=== PATIENT | female | born 1940 | race Hispanic/Latino ===

== ENCOUNTER 2019-07-29 15:39 | Emergency (ER) | payer MEDICARE ==
[2019-07-29 16:52] LABS: Absolute Lymphocytes (CBC) 1.7 K/uL (0.7-4.9); Basophils % 0.9 % (0-1.3); Hematocrit 37.1 % (36.0-45.0); Lymphocytes % 28.5 % (15.3-44.8); MPV 10.1 fL (7.6-11.3); RBC Red Blood Cell Count 3.82 M/uL (3.86-4.86)
[2019-07-29 16:53] LABS: Protime INR 1.03
--- NOTE | 2019-07-29 17:02 | RAD REPORT ---
EXAM DESCRIPTION: CT - Head Brain Wo Cont - 07/29/2019 4:45 pm CLINICAL HISTORY: DIZZINESS Headache, drowsiness COMPARISON: No comparisons TECHNIQUE: All CT scans are performed using dose optimization technique as appropriate and may inclu de automated exposure control or mA/KV adjustment according to patient size. FINDINGS: No intracranial hemorrhage, hydrocephalus or extra-axial fluid collection.No areas of brai n edema or evidence of midline shift. The paranasal sinuses and mastoids are clear. The calvarium is intact. IMPRESSION: No acute intracranial abnormality.
[2019-07-29 17:09] LABS: BUN Blood Urea Nitrogen 12 mg/dL (7-18); Bicarbonate 29 mmol/L (21-32); Glucose Level 110 mg/dL (74-106); Magnesium 2.1 mg/dL (1.8-2.4); Potassium 3.6 mmol/L (3.5-5.1); Sodium Level 142 mmol/L (136-145); Troponin (Emerg Dept Use Only) < 0.02 ng/mL (0.0-0.045)
--- NOTE | 2019-07-29 17:37 | ER ---
Nurse's Notes [facility] Name: Sangeeta Maddox Age: 79 yrs Sex: Female : 1940 Arrival Date: 07/29/2019 Time: 15:41 Bed 2 Private MD: Karen Rock Diagnosis: Dizziness and giddiness;Hypertensive heart disease Presentation: 07/28 15:48 Chief complaint: Patient states: Dizziness, pain to ears, not feeling well for 4 days. ll1 No known fever. Slight diarrhea. Coronavirus screen: Proceed with normal triage. Patient denies a cough. Patient denies shortness of breath or difficulty breathing. Patient denies measured and/or subjective temperature greater than 100.4F prior to today's visit. Patient denies travel on a cruise ship or to a country the [facility] currently lists as an affected area. Patient denies contact with known and/or suspected case of COVID-19. Ebola Screen: Patient denies travel to an Ebola-affected area in the 21 days before illness onset. Initial Sepsis Screen: Does the patient meet any 2 criteria? No. Patient's initial sepsis screen is negative. Does the patient have a suspected source of infection? No. Patient's initial sepsis screen is negative. Risk Assessment: Do you want to hurt yourself or someone else? Patient reports no desire to harm self or others. Onset of symptoms was July 26, 2019. 15:48 Method Of Arrival: Ambulatory ll1 15:48 Acuity: ARSEN 3 ll1 Historical: - Allergies: 15:53 PENICILLINS; ll1 - PMHx: 15:53 High Cholesterol; Hypertension; ll1 - Immunization history:: Flu vaccine is up to date. - Social history:: Patient/guardian denies using alcohol, street drugs, tobacco products, Smoking status: Patient denies any tobacco usage or history of. Screenin:47 Abuse screen: Denies threats or abuse. Denies injuries from another. Nutritional ph screening: No deficits noted. Tuberculosis screening: No symptoms or risk factors identified. Fall Risk None identified. Assessment: 16:44 General: Appears in no apparent distress. comfortable, slender, well groomed, Behavior ph is calm, cooperative, appropriate for age, Reports feeling ill for 2-3 days, Denies fever. Pain: Complains of pain in right ear and left ear. Neuro: Level of Consciousness is awake, alert, obeys commands, Oriented to person, place, time, situation, Reports dizziness. Cardiovascular: Reports fatigue, palpitations, Denies chest pain, nausea, shortness of breath, Capillary refill < 3 seconds in bilateral fingers Patient's skin is warm and dry. Respiratory: Airway is patent Respiratory effort is even, unlabored, Respiratory pattern is regular, symmetrical. GI: Reports diarrhea, Patient currently denies abdominal pain, nausea, vomiting. EENT: Reports pain in right ear and left ear. Derm: Skin is intact, is healthy with good turgor, Skin is pink, warm \T\ dry. Musculoskeletal: Circulation, motion, and sensation intact. Range of motion: intact in all extremities. 18:05 Reassessment: Patient appears in no apparent distress at this time. Patient and/or ph family updated on plan of care and expected duration. Pain level reassessed. Patient is alert, oriented x 3, equal unlabored respirations, skin warm/dry/pink. Pt d/c home w/ family, instructed to follow up w/ PCP. Vital Signs: 15:48 BP 160 / 70; Pulse 60; Resp 18; Temp 97.5; Pulse Ox 98% ; Weight 59.87 kg; Height 4 ft. ll1 10 in. (147.32 cm); Pain 8/10; 17:07 BP 149 / 63; Pulse 57; Resp 16; Pulse Ox 98% on R/A; ph 17:10 BP 147 / 64 Supine; Pulse 62; ph 17:10 BP 151 / 64 Sitting; Pulse 67; ph 17:10 BP 139 / 68 Standing; Pulse 69; ph 15:48 Body Mass Index 27.59 (59.87 kg, 147.32 cm) ll1 ED Course: 15:41 Patient arrived in ED. ag5 15:41 Karen Rock MD is Private Physician. ag5 15:50 Triage completed. ll1 15:53 Arm band placed on Patient placed in an exam room, on a stretcher. ll1 16:00 Rebecca Gu RN is Primary Nurse. ph 16:02 Marco Rosas PA is PHCP. cp 16:02 Ruben Teresa MD is Attending Physician. cp 16:40 Initial lab(s) drawn, by ky, sent to lab. Inserted saline lock: 20 gauge in right ph antecubital area, using aseptic technique. Blood collected. 16:45 CT Head Brain wo Cont In Process Unspecified. EDMS 16:46 Patient has correct armband on for positive identification. Placed in gown. Bed in low ph position. Call light in reach. Side rails up X2. box tender on. Pulse ox on. NIBP on. Door closed. Noise minimized. Warm blanket given. 17:36 Karen Rock MD is Referral Physician. cp 18:00 No provider procedures requiring assistance completed. IV discontinued, intact, em bleeding controlled, No redness/swelling at site. Pressure dressing applied. Administered Medications: No medications were administered Outcome: 17:37 Discharge ordered by MD. cp 18:00 Discharged to home ambulatory. em 18:00 Condition: good 18:00 Discharge instructions given to patient, Instructed on discharge instructions, follow up and referral plans. Demonstrated understanding of instructions, follow-up care. 18:06 Patient left the ED. em Signatures: Dispatcher [employer] Cory Manuel RN RN Rebecca Gu RN RN ph Marco Rosas, PA PA Nakul Logan ag5 Izabel Olivares RN RN ll1
--- NOTE | 2019-07-29 17:38 | EDPHYS ---
Physician Documentation [facility] Name: Sangeeta Maddox Age: 79 yrs Sex: Female : 1940 Arrival Date: 07/29/2019 Time: 15:41 Bed 2 Private MD: Karen Rock ED Physician Ruben Teresa HPI: 07/28 16:25 This 79 yrs old Female presents to ER via Ambulatory with complaints of High cp Blood Pressure, Dizziness. 16:25 The patient has elevated blood pressure and discovered this at home, with a home cp device. Onset: The symptoms/episode began/occurred yesterday. Associated signs and symptoms: Pertinent positives: dizziness, headache, ear pain, diarrhea, Pertinent negatives: chest pain, nausea, visual changes, vomiting, weakness. Severity of symptoms: At its worst the blood pressure was 190 mm Hg, in the emergency department the blood pressure is improved, 160 mm Hg. Historical: - Allergies: 15:53 PENICILLINS; ll1 - PMHx: 15:53 High Cholesterol; Hypertension; ll1 - Immunization history:: Flu vaccine is up to date. - Social history:: Patient/guardian denies using alcohol, street drugs, tobacco products, Smoking status: Patient denies any tobacco usage or history of. ROS: 16:30 Constitutional: Negative for body aches, chills, fever, poor PO intake. cp 16:30 Eyes: Negative for injury, pain, redness, and discharge. cp 16:30 Cardiovascular: Negative for chest pain, edema, palpitations. cp 16:30 ENT: Positive for ear pain, Negative for sore throat, difficulty swallowing, difficulty cp handling secretions. 16:30 Respiratory: Negative for cough, shortness of breath, wheezing. 16:30 Abdomen/GI: Positive for diarrhea, Negative for abdominal pain, nausea, vomiting, constipation. 16:30 : Negative for urinary symptoms. 16:30 Neuro: Positive for dizziness, headache, Negative for altered mental status, gait disturbance, numbness, speech changes, weakness. 16:30 All other systems are negative. Exam: 16:40 Constitutional: The patient appears in no acute distress, alert, awake, comfortable, cp non-diaphoretic, non-toxic, well developed, well nourished. 16:40 Head/Face: Normocephalic, atraumatic. cp 16:40 Eyes: Pupils equal round and reactive to light, extra-ocular motions intact. Lids and lashes normal. Conjunctiva and sclera are non-icteric and not injected. Cornea within normal limits. Periorbital areas with no swelling, redness, or edema. ENT: Nares patent. No nasal discharge, no septal abnormalities noted. Tympanic membranes are normal and external auditory canals are clear. Oropharynx with no redness, swelling, or masses, exudates, or evidence of obstruction, uvula midline. Mucous membranes moist. Chest/axilla: Normal chest wall appearance and motion. Nontender with no deformity. No lesions are appreciated. 16:40 Cardiovascular: Rate: normal, Rhythm: regular, Edema: is not appreciated, JVD: is not appreciated. 16:40 Respiratory: the patient does not display signs of respiratory distress, Respirations: normal, no use of accessory muscles, no retractions, labored breathing, is not present, Breath sounds: are clear throughout, no decreased breath sounds. 16:40 Abdomen/GI: Exam negative for discomfort, distension, guarding, Inspection: abdomen appears normal. 16:40 Skin: cellulitis, is not appreciated, no rash present. 16:40 Neuro: Orientation: to person, place \T\ time. Mentation: is normal, Cerebellar function: is grossly normal, Motor: moves all fours, strength is normal, Sensation: is normal, Gait: is steady, at a normal pace, without difficulty. Vital Signs: 15:48 BP 160 / 70; Pulse 60; Resp 18; Temp 97.5; Pulse Ox 98% ; Weight 59.87 kg; Height 4 ft. ll1 10 in. (147.32 cm); Pain 8/10; 17:07 BP 149 / 63; Pulse 57; Resp 16; Pulse Ox 98% on R/A; ph 17:10 BP 147 / 64 Supine; Pulse 62; ph 17:10 BP 151 / 64 Sitting; Pulse 67; ph 17:10 BP 139 / 68 Standing; Pulse 69; ph 15:48 Body Mass Index 27.59 (59.87 kg, 147.32 cm) ll1 MDM: 16:19 Patient medically screened. cp 18:05 Data reviewed: vital signs, nurses notes, lab test result(s), EKG, radiologic studies, cp CT scan. 18:05 Counseling: I had a detailed discussion with the patient and/or guardian regarding: the cp historical points, exam findings, and any diagnostic results supporting the discharge/admit diagnosis, lab results, radiology results, the need for outpatient follow up, a family practitioner, to return to the emergency department if symptoms worsen or persist or if there are any questions or concerns that arise at home. Response to treatment: the patient's symptoms have mildly improved after treatment, and as a result, I will discharge patient. 07/28 16:21 Order name: Basic Metabolic Panel; Complete Time: 17:23 cp 07/28 17:23 Interpretation: Normal except: GLUC 110. cp 07/28 16:21 Order name: CBC with Diff; Complete Time: 17:23 cp 07/28 17:23 Interpretation: Normal except: RBC 3.82. cp 07/28 16:21 Order name: Magnesium; Complete Time: 17:23 cp 07/28 16:21 Order name: PT-INR; Complete Time: 17:23 cp 07/28 16:21 Order name: Troponin (emerg Dept Use Only); Complete Time: 17:23 cp 07/28 17:24 Interpretation: Reviewed. cp 07/28 16:21 Order name: CT Head Brain wo Cont; Complete Time: 17:23 cp 07/28 17:24 Interpretation: Report reviewed. cp 07/28 16:21 Order name: Orthostatics; Complete Time: 17:18 cp 07/28 16:21 Order name: EKG; Complete Time: 16:32 cp 07/28 16:21 Order name: Cardiac monitoring; Complete Time: 16:43 cp 07/28 16:21 Order name: EKG - Nurse/Tech; Complete Time: 17:06 cp 07/28 16:21 Order name: IV Saline Lock; Complete Time: 16:43 cp 07/28 16:21 Order name: Labs collected and sent; Complete Time: 16:43 cp 07/28 16:21 Order name: O2 Per Protocol; Complete Time: 16:43 cp 07/28 16:21 Order name: O2 Sat Monitoring; Complete Time: 16:43 cp Administered Medications: No medications were administered Disposition: 07/29 15:59 Co-signature as Attending Physician, Ruben Teresa MD I agree with the assessment and kdr plan of care. Disposition: 07/29/19 17:37 Discharged to Home. Impression: Dizziness and giddiness, Hypertensive heart disease. - Condition is Stable. - Discharge Instructions: Dizziness, Hypertension, How to Take Your Blood Pressure, [id number], Aspirin and Your Heart. - Medication Reconciliation Form, Thank You Letter, Antibiotic Education, Prescription Opioid Use form. - Follow up: Karen Rock MD; When: 2 - 3 days; Reason: Recheck today's complaints. - Problem is new. - Symptoms have improved. Signatures: Dispatcher [employer] EDRuben Nobles MD MD [facility] Cory Grider RN RN em Rebecca Gu RN RN ph Marco Rosas, PA PA cp Izabel Olivares RN RN ll1 Corrections: (The following items were deleted from the chart) 07/28 18:06 17:37 07/29/2019 17:37 Discharged to Home. Impression: Dizziness and giddiness; em Hypertensive heart disease. Condition is Stable. Forms are Medication Reconciliation Form, Thank You Letter, Antibiotic Education, Prescription Opioid Use. Follow up: Karen Rock; When: 2 - 3 days; Reason: Recheck today's complaints. Problem is new. Symptoms have improved. cp
[2019-07-29 18:13] VITALS: TEMP 97.5; O2SAT 98
[2019-07-29 18:15] VITALS: BP 139/68
--- NOTE | 2019-07-30 18:33 | EKG ---
Test Date: 2019-07-29 Test Time: 17:04:58 Operations Inspector: VIRGIE MEASUREMENT RESULTS: Intervals: Rate: 56 CT: 136 QRSD: 84 QT: 438 QTc: 422 Clute: P: 6 CT: 136 QRS: 46 T: 36 INTERPRETIVE STATEMENTS: Sinus bradycardia Otherwise normal ECG Compared to ECG 01/18/2010 11:44:32 Sinus rhythm no longer present Electronically Signed On 07-30-19 18:31:20 CDT by Thom Liriano
== END 2019-07-29 18:06 | disposition home or self-care (01) ==
LOC: ER 15:39
DX: I11.9 Hypertensive heart disease without heart failure (principal); I10 Essential (primary) hypertension; Z88.0 Allergy status to penicillin
CPT/HCPCS: 36415; 70450; 80048; 83735; 84484; 85025; 85610; 93005; 99284

== ENCOUNTER 2021-05-12 06:42 | Day surgery (SDC) | payer OTHER ==
[2021-05-10 10:14] LABS: Absolute Lymphocytes (CBC) 2.1 K/uL (0.7-4.9); Hematocrit 38.3 % (36.0-45.0); Lymphocytes % 36.6 % (15.3-44.8); MPV 9.8 fL (7.6-11.3); RBC Red Blood Cell Count 3.89 M/uL (3.86-4.86)
[2021-05-10 10:16] LABS: Urine Appearance CLEAR (Clear); Urine Bilirubin NEGATIVE (Negative); Urine Blood NEGATIVE (Negative); Urine Color YELLOW (Yellow); Urine Glucose NEGATIVE (Negative); Urine Protein NEGATIVE (Negative)
[2021-05-10 10:17] LABS: Urine Microscopic Reflex NO UMIC
[2021-05-10 10:18] LABS: Protime INR 0.99
[2021-05-10 10:28] LABS: Potassium 3.2 mmol/L (3.5-5.1)
[2021-05-12] MEDS ORDERED: LIDOCAINE 1% W/EPI 1:100,000 MDV 20 ML VIAL ONE (06:55)
[2021-05-12] MEDS ORDERED: CEFAZOLIN SODIUM 1 GM/VIAL ONE (06:55)
[2021-05-12] MEDS ORDERED: VASOPRESSIN 20 UNIT/ML VIAL ONE (06:55)
[2021-05-12] MEDS ORDERED: NA CHLORIDE 0.9% 100 ML IV ONE (06:55)
[2021-05-12] MEDS ORDERED: Ringers Lactate 1,000 ML IV ONE ×2 (07:04→09:17)
[2021-05-12] MEDS ORDERED: CEFAZOLIN/SWI 2gm 2 GM/20 ML SYR ONE (07:04)
[2021-05-12] MEDS ORDERED: FENTANYL CITR 250 MCG/5 ML ONE ×2 (07:08→07:11)
[2021-05-12] MEDS ORDERED: MIDAZOLAM HCL 2 MG/2 ML INJ ONE (07:08)
[2021-05-12] MEDS ORDERED: LIDOCAINE 1% MPF 5 ML VIAL ONE (07:08)
[2021-05-12] MEDS ORDERED: KETAMINE HCL 500 MG/5 ML VIAL ONE (07:08)
[2021-05-12] MEDS ORDERED: dexAMETHasone 10 MG/ML VIAL ONE (07:08)
[2021-05-12] MEDS ORDERED: ONDANSETRON 4 MG/2 ML VIAL ONE (07:08)
[2021-05-12] MEDS ORDERED: propofoL 200 MG/20 ML VIAL IV ONE (07:08)
[2021-05-12] MEDS ORDERED: ROCURONIUM 50 MG/5 ML VIAL IV ONE (07:09)
[2021-05-12] MEDS ORDERED: GLYCOPYRROLATE 0.2 MG/ML SYR ONE (08:33)
[2021-05-12] MEDS ORDERED: HEPARIN 5000 UNIT/ML 1 ML VIAL ONE (12:03)
[2021-05-12] MEDS ORDERED: ACETAMINOPHEN 500 MG TAB PO PRN (12:30)
[2021-05-12] MEDS ORDERED: MORPHINE 2 MG/ML SYR IV PRN (12:30)
[2021-05-12] MEDS ORDERED: PROMETHAZINE INJ 25 MG/ML AMP IV PRN (12:30)
--- NOTE | 2021-05-12 12:45 | P.BOP ---
Preoperative diagnosis: stage 4 uterovaginal prolapse, GEORGE Postoperative diagnosis: same, perineocele Primary procedure: Lefort's Partial colpocleisis, distal posterior wall/perineocele repair Secondary procedure: MUS (TVT-O) cystoscopy Rate Analyst: Yuridia Oshea Estimated blood loss: 100 Specimen: none Findings: +1/+6/+8/7.5/mod/10/+1/+4/+7, perineocele Anesthesia: General Complications: None Drain(s): Urinary catheter Implants: tvt-o Fluids & blood products: 700 Transferred to: Recovery Room Condition: Good
[2021-05-12] MEDS: Ringers Lactate 1,000 ML IV SCH ×2 (13:15→21:00)
[2021-05-12] MEDS ORDERED: IBUPROFEN 600 MG TAB PO PRN (13:19)
[2021-05-12 14:01] VITALS: BMI 26.0
[2021-05-12] MEDS ORDERED: PNEUMOCOCCAL VACCINE 0.5 ML IMVAC ONE (15:00)
[2021-05-12] MEDS: HEPARIN 5000 UNIT/ML 1 ML VIAL SQ SCH (17:04)
[2021-05-12] MEDS ORDERED: ATORVASTATIN 10 MG TAB PO SCH (21:00)
[2021-05-12 23:21] VITALS: O2SAT 100
[2021-05-13] MEDS: HEPARIN 5000 UNIT/ML 1 ML VIAL SQ SCH ×2 (01:10→09:00)
[2021-05-13] MEDS: Ringers Lactate 1,000 ML IV SCH (05:13)
[2021-05-13 06:24] LABS: Absolute Lymphocytes (CBC) 1.6 K/uL (0.7-4.9); Hematocrit 29.2 % (36.0-45.0); Lymphocytes % 20.6 % (15.3-44.8); MPV 10.1 fL (7.6-11.3); RBC Red Blood Cell Count 3.03 M/uL (3.86-4.86)
[2021-05-13] MEDS ORDERED: PANTOPRAZOLE 40MG TABLET PO SCH (07:30)
[2021-05-13] MEDS ORDERED: HOME MED 1 EA UNK (Vit A/Vit C/Vit E/Zinc/Copper [Preservision Areds Softgel] Capsule) PO SCH (09:00)
[2021-05-13] MEDS ORDERED: BISOPROLOL/HCTZ 5/6.25MG TAB PO SCH (09:00)
[2021-05-13] MEDS ORDERED: AZELASTINE HCL 205.5 MCG/0.137 ML NAS SCH (09:00)
[2021-05-13] MEDS ORDERED: HOME MED 1 EA UNK (Multivitamin/Iron/Folic Acid [Centrum Adults Tablet] Tablet) PO SCH (09:00)
[2021-05-13] MEDS ORDERED: MELOXICAM 7.5 MG TAB PO SCH (09:00)
[2021-05-13] MEDS ORDERED: OCUVITE (VIT A,C & E/LUTEIN/MINERAL) TABLET PO SCH (09:00)
[2021-05-13] MEDS ORDERED: MULTIVIT W/ MINERAL TAB PO SCH (09:00)
[2021-05-13] MEDS ORDERED: VITAMIN D 5,000 UNIT CAP PO SCH (09:00)
[2021-05-13] MEDS ORDERED: PUMP NAS SCH (09:00)
[2021-05-13] MEDS ORDERED: MONTELUKAST 10 MG TAB PO SCH (09:00)
[2021-05-13] MEDS ORDERED: HCTZ PO SCH (09:00)
[2021-05-13] MEDS ORDERED: BISOPROLOL PO SCH (09:00)
[2021-05-13] MEDS ORDERED: HOME MED 1 EA UNK (Omeprazole [Prilosec] 20 MG Capsule.Dr) PO SCH (09:00)
[2021-05-13 12:27] LABS: Absolute Lymphocytes (CBC) 2.5 K/uL (0.7-4.9); Hematocrit 30.2 % (36.0-45.0); Lymphocytes % 30.2 % (15.3-44.8); MPV 10.3 fL (7.6-11.3); RBC Red Blood Cell Count 3.11 M/uL (3.86-4.86)
[2021-05-13 13:15] VITALS: BP 114/46; TEMP 97.7
--- NOTE | 2021-05-18 03:04 | OP ---
Date of Procedure: 05/12/2021 Surgeon: Marcy Farnsworth MD Dial Buffer: Yuridia Vigil Preoperative Diagnoses: Stage IV uterovaginal prolapse, stress urinary incontinence. Postoperative Diagnoses: Stage IV uterovaginal prolapse, stress urinary incontinence, and perineocel e. Procedures Performed: LeFort partial colpocleisis, distal posterior wall repair, perineocele repair, midurethral sling (TVT-O), cystoscopy. Anesthesia: General with LMA. Estimated Blood Loss: 100 Urine Output: 700 Fluids: Over 1500. Specimens: No specimens. Complications: No complications. Drains: Garcia catheter. Implants: TVT-O. Findings: POP-Q +1 +6 +8 7.5, moderate 10 +1 +4 and +7. Perineocele was noted. Indication: The patient was examined in the office. The prolapse appeared to be stage IV, however, not as large as it appeared to be in the OR nor on exam as noted now. The patient wanted to undergo surgical repair and declined any pessary management. The patient was very sure that she did not have any plans for vaginal intercourse and so discussed about colpocleisis, vaginal closure and she conse nted for this. Procedure In Detail: After informed consent was verified, she was taken back to OR, placed in supine fashion on the operating room table. General anesthesia was given. She was placed in the dorsal li thotomy position. Pelvic exam was performed and POP-Q as above. 2 g of Ancef was given. SCDs were placed. Time-out was done. Abdomen, vulva, vagina, and perineum were prepped and draped in a steril e fashion. Then, after the POP-Q was done and decided that colpocleisis was feasible, then went osiris dennis and marked the anterior compartment from the ureterovesical junction all the way down to a centimet er above the external cervical os. Similarly, 1 cm away from the external os posteriorly all the way to above from 3.5 cm proximal to the hymenal remnants in the future perineal body. Then, once the m arkings were made, dilute vasopressin was injected and vaginal epithelium was denuded in a rectangula r fashion on the anterior compartment first bisecting in the middle, so that 2 strips could be taken down. Once this was done, then posteriorly, the vaginal epithelium was excised as well. Then, a sunny nnel was created for drainage of the uterine contents with 0 Vicryl suture. The transverse channel w as first reconstructed using a Marnie clamp, making sure that it remains patent and then the suture wa s run all the way on the right lateral aspect to the distal aspect creating the lateral channel. The n, the left lateral channel was created in a continuous running fashion and then once this was done, we started to close the anterior and posterior anders apposing to each other with 2-0 Vicryl sutures i n interrupted layers in 3 layers, 3 to 4 stitches on each layer. Then, once the distal areas were at tached with 2-0 Vicryl [id number] sutures x6, then went ahead and re-examined rectovaginally the posterior defect. There was a clear perineocele, so a cristóbal-shaped incision was made in the dista l part of the posterior wall and then on the perineum all the way a centimeter above the anal orifice . Then, the skin was excised here after dilute vasopressin was injected. Then, the lateral structur es of the deep and superficial transverse perinei were exposed. External sphincter was exposed as we ll. Then, posterior wall was also opened up and levators were exposed, all the way the distal fascia l layer was exposed. Once this was done, then went ahead and plicated the distal posterior rectovagi nal septum. Then, the external sphincter was sutured with interrupted [id number] 2-0 Vicryl sut ures in an end-to-end fashion. Then, the deep transverse perineum remnants and the scar tissue were brought together with interrupted 2-0 Vicryl sutures for perineocele repair. About [address] aced here for reconstruction. Then, the levators were plicated as well with 2-0 Vicryl sutures. Onc e all this was done, there was excellent perineal body. The perineum was at least 3 cm. The distal posterior wall length was 2 cm. Once this was completed, rectal exam was done and was negative. In the mid urethral area, injection of dilute vasopressin was done. Allis clamps were placed on eith er sides of the mid urethral area. A 1 cm incision made in the midline. Dissection carried to the i psilateral obturator spaces hugging the inferior pubic rami, moved after the space was open. After t he membrane was perforated, similar dissection performed on both sides. The wing guide was placed an d the spike was passed through hugging the inferior pubic ramus, exiting at the level of the external meatus, 2 cm lateral to the groin fold, avoiding the adductor longus tendon. Same thing on the othe r side was done. Then, once the plastic sheath and the mesh were held with 2 Marnie clamps, the cente r mid urethral area was held with Allis clamp and then sheaths were pulled and the mesh was tensioned appropriately. Then, the Allis in the middle was let go and then the mesh trimmed at the skin with flush. Skin closed with Dermabond. Antibiotic solution used to irrigated the mesh and closed with c ontinuous running 3-0 Vicryl sutures. Garcia was removed. Cystoscopy was performed. Both ureteric o rifices had strong jets of urine from them. No evidence of any trauma or direct trauma to the bladde r. The bladder was drained. Garcia was replaced. No vaginal pack was placed. She was recovered fro m anesthesia and taken to PACU in stable condition, and sent over to the recovery area for overnight observation. RAHUL/BENITA Voice ID: [id number] Report ID: [id number]
== END 2021-05-13 14:20 | disposition home or self-care (01) ==
LOC: OR 06:42 → 2ND-WC 12:56 → OR 05-13 14:20
PROVIDERS: ATTEND Obstetrics & Gynecology
PROC: 0HQ9XZZ Repair Perineum Skin, External Approach (ICD-10-PCS; 2021-05-12)
PROC: 0TSD0ZZ Reposition Urethra, Open Approach (ICD-10-PCS; 2021-05-12)
PROC: 0ULG7ZZ Occlusion of Vagina, Via Natural or Artificial Opening (ICD-10-PCS; 2021-05-12)
PROC: 0JQC0ZZ Repair Pelvic Region Subcutaneous Tissue and Fascia, Open Approach (ICD-10-PCS; principal; 2021-05-12 07:30)
DX: N81.4 Uterovaginal prolapse, unspecified (principal); N39.3 Stress incontinence (female) (male); N81.81 Perineocele; Z20.822 Contact with and (suspected) exposure to COVID-19
CPT/HCPCS: 85025 ×3; 80048; 36415 ×2; 86900; 86850; 85610; 86901; 85730; 81003; 83036; 90732; 57250; 57288; 57120; U0003; J2704; J1644 ×2; J2250; J3010; J1100; J2270; J0690 ×2; J7120 ×3; J2405

== ENCOUNTER 2024-12-04 08:46 | Emergency (ER) | payer OTHER ==
--- OUTSIDE RECORDS SUMMARY | 2024-12-04 08:49 | XMS REPORT | Continuity of Care Document ---
Author Name Unknown Address [address] [place] [address] [place] [address] [address] [place] [address] Care Team Providers Care Dry Wall Installer Name Role Phone [email or web address] Attending Clinician Unavaila ble [email or web address] Admitting Clinician Unavaila ble Payers Payer Name Policy Type Policy Number Effective Date Expirati on Date Source [employer] - [employer] MED[employer]US PLAN (MEDICARE REPLACEMENT/ADVANTAGE - HMO) [id number]
[2024-12-04] MEDS ORDERED: KETOROLAC 30 MG/ML INJ ONE (09:07)
[2024-12-04] MEDS ORDERED: ACETAMINOPHEN 500 MG TAB ONE (09:07)
--- NOTE | 2024-12-04 10:10 | RAD REPORT ---
EXAM: CT brain without contrast HISTORY: TRAUMA COMPARISON: 10/11/2024 TECHNIQUE: Multiple contiguous axial images were obtained and a CT of the brain without contrast. Sag ittal and coronal reformats were performed. FINDINGS: No evidence of hydrocephalus, intracranial hemorrhage, or extra-axial fluid collection. The brain is normal in morphology. The calvarium is intact. The visualized paranasal sinuses and mastoid air cells are essentially clear . IMPRESSION: No evidence of acute intracranial abnormality. EXAM: CT of the cervical spine without contrast HISTORY: TRAUMA COMPARISON: None TECHNIQUE: Multiple contiguous axial images were obtained in a CT of the cervical spine without contr ast. Sagittal and coronal reformats were performed. FINDINGS: The vertebral bodies demonstrate normal height and alignment. No evidence of acute fracture or subluxation.. Up to moderate degenerative changes are present, with neural foraminal narrowing most pronounced at C4-5 through C6-7 on the left. No prevertebral soft tissue swelling is seen. The posterior facets are well aligned. Normal alignment of the skull base with the cervical spine is seen. The lung apices are unremarkable. IMPRESSION: No evidence of acute osseous abnormality of the cervical spine. Degenerative changes as above.
--- NOTE | 2024-12-04 10:19 | RAD REPORT ---
EXAMINATION: CT MAXILLOFACIAL WITHOUT CONTRAST CLINICAL INDICATION: [facility] MAIN TRAUMA Bed: TECHNIQUE: Axial images were obtained through the facial bones and orbits without intravenous contras t. Sagittal and coronal reconstructions were created from the data. One or more of the following dose reduction techniques were used: Automated exposure control, adjustment of the mA and/or kV accor ding to patient size, and/or iterative reconstruction. Unless otherwise specified, incidental findings do not require dedicated imaging follow-up. COMPARISON: No prior exam. FINDINGS: SOFT TISSUE: No significant abnormalities. Dental hardware results in streak artifact which limits ev aluation at the level of the oral cavity and oropharynx. BONES: No evidence of acute fracture, dislocation, or aggressive osseous lesions. No lesion of the v isualized skull base or calvarium. ORBITS: The globes are intact. No intraorbital hemorrhage or mass. SINUSES: The paranasal sinuses and tympanomastoid cavities are predominantly clear. IMPRESSION: No acute facial fractures. No soft tissue abnormalities.
--- NOTE | 2024-12-04 10:41 | ER ---
Nurse's Notes [facility] Name: Sangeeta Maddox Age: 84 yrs Sex: Female : 1940 Arrival Date: 12/04/2024 Time: 08:46 Bed 12 Private MD: Diagnosis: Fall on same level, unspecified;Headache Presentation: 12/04 09:09 Chief complaint: Patient states: tripped on unlevel ground yesterday morning. C/o pain ss to L arm, and L leg and L cheek. Small bruise and swelling noted to L side of face/ cheek area. Coronavirus screen: Client denies travel out of the [place] in the last 14 days. Ebola Screen: Patient denies exposure to infectious person. Patient denies travel to an Ebola-affected area in the 21 days before illness onset. Initial Sepsis Screen: Does the patient meet any 2 criteria? No. Patient's initial sepsis screen is negative. Does the patient have a suspected source of infection? No. Patient's initial sepsis screen is negative. Risk Assessment: Do you want to hurt yourself or someone else? Patient reports no desire to harm self or others. Onset of symptoms was December 03, 2024. 09:09 Acuity: ARSEN 3 ss 09:09 Method Of Arrival: Ambulatory Historical: - Allergies: 09:12 PENICILLINS; ss - PMHx: 09:12 High Cholesterol; Hypertension; ss - Infectious Disease History:: Denies. - Social history:: Smoking status: Patient denies any tobacco usage or history of. Vital Signs: 09:09 BP 154 / 79; Pulse 68; Resp 16; Temp 98.2; Pulse Ox 99% ; Weight 57.15 kg; Pain 7/10; ss 09:09 Pain Scale: Adult ss ED Course: 08:52 Patient arrived in ED. cj3 08:53 Tr Meneses FNP-C [facility]. dr5 08:53 Marco Whittaker MD is Attending Physician. dr5 09:12 Triage completed. ss 09:12 Arm band placed on left wrist. ss 09:14 Silvia Barnett, DENYS is Primary Nurse. ss 09:32 CT Head C Spine In Process Unspecified. EDMS 09:32 CT Facial Bones W/O Con In Process Unspecified. EDMS 10:08 Chest Single View XRAY In Process Unspecified. EDMS 10:08 Hip Left 2 View XRAY In Process Unspecified. EDMS 10:47 No provider procedures requiring assistance completed. Patient did not have IV access ss during this emergency room visit. Administered Medications: 09:22 Drug: Acetaminophen PO 1000 mg PO once Route: PO; ss 09:23 Drug: Ketorolac IM 30 mg IM once Route: IM; Site: right gluteus; ss Outcome: 10:40 Discharge ordered by MD. dr5 10:47 Discharged to home ambulatory, with family, ss 10:47 Condition: good 10:47 Discharge instructions given to patient, family, Instructed on discharge instructions, follow up and referral plans. medication usage, Demonstrated understanding of instructions, follow-up care, medications, Prescriptions given X 1, 10:48 Patient left the ED. ss Signatures: Dispatcher [employer] Silvia Vincent RN RN Tr Meneses, ENVIRONMENTAL SCIENCE INSTRUCTOR-C ENVIRONMENTAL SCIENCE INSTRUCTOR-Cdr5 Shefali Abbott cj3 Corrections: (The following items were deleted from the chart) 09:27 09:09 Chief complaint: Patient states: tripped on unlevel ground yesterday morning. C/o ss pain to L arm, and L leg ss
--- NOTE | 2024-12-04 10:41 | EDPHYS ---
Physician Documentation [facility] Name: Sangeeta Maddox Age: 84 yrs Sex: Female : 1940 Arrival Date: 12/04/2024 Time: 08:46 Bed 12 Private MD: ED Physician Marco Whittaker HPI: 12/04 09:08 This 84 yrs old Female presents to ER via Unassigned with complaints of Fall dr5 Injury, Head Injury Without LOC-Adult, LT Side Pain. 09:08 Details of fall: The patient fell from an upright position, while standing. Onset: The dr5 symptoms/episode began/occurred yesterday. Patient is a 84-year-old female coming in with fall after tripping over a curb and landing on a wall at home. Patient reports pain to left cheek where she had impact, left hip patient reports that she had tingling prior to arrival. Patient denies been on blood thinners. Patient denies loss of consciousness.. Patient reports generalized headache. Patient denies chest pain, shortness of breath, nausea, vomiting or diarrhea.. Historical: - Allergies: 09:12 PENICILLINS; ss - PMHx: 09:12 High Cholesterol; Hypertension; ss - Infectious Disease History:: Denies. - Social history:: Smoking status: Patient denies any tobacco usage or history of. ROS: 09:08 Constitutional: as per hpi dr5 Exam: 09:08 Constitutional: This is a well developed, well nourished patient who is awake, alert, dr5 and in no acute distress. Head/Face: Normocephalic, atraumatic. ENT: Nares patent. No nasal discharge, no septal abnormalities noted. Tympanic membranes are normal and external auditory canals are clear. Oropharynx with no redness, swelling, or masses, exudates, or evidence of obstruction, uvula midline. Mucous membranes moist. Neck: Trachea midline, no thyromegaly or masses palpated, and no cervical lymphadenopathy. Supple, full range of motion without nuchal rigidity, or vertebral point tenderness. No Meningismus. Chest/axilla: Normal chest wall appearance and motion. Nontender with no deformity. No lesions are appreciated. Cardiovascular: Regular rate and rhythm with a normal S1 and S2. Normal PMI, no JVD. No pulse deficits. Respiratory: Lungs have equal breath sounds bilaterally, clear to auscultation. No rales, rhonchi or wheezes noted. No increased work of breathing, no retractions or nasal flaring. Back: No spinal tenderness. No costovertebral tenderness. Full range of motion. Skin: Warm, dry with normal turgor. Normal color with no rashes, no lesions, and no evidence of cellulitis. Swelling noted to left forehead. MS/ Extremity: Pulses equal, no cyanosis. Neurovascular intact. Full, normal range of motion. Neuro: Awake and alert, GCS 15, oriented to person, place, time, and situation. Cranial nerves II-XII grossly intact. Motor strength 5/5 in all extremities. Sensory grossly intact. Cerebellar exam normal. Normal gait. Vital Signs: 09:09 BP 154 / 79; Pulse 68; Resp 16; Temp 98.2; Pulse Ox 99% ; Weight 57.15 kg; Pain 7/10; ss 09:09 Pain Scale: Adult ss MDM: 08:53 Medical Screening Exam initiated dr5 10:47 Differential diagnosis: abrasion, closed head injury, contusion, fracture, sprain, dr5 strain. Data reviewed: vital signs, nurses notes, radiologic studies, CT scan, plain films. Consideration of Admission/Observation Escalation of care including admission/observation considered. Escalation considered patient found to have intracranial hemorrhage.. I considered the following discharge prescriptions or medication management in the emergency department I discussed and recommended Over The Counter medications, Medications were administered in the Emergency Department. See MAR. Independent interpretation of the following test(s) in the Emergency Department X-Ray: My interpretation is Independent interpretation of x-ray does not reveal fracture.. Historians other than the Patient: Daughter/Son: Daughter. Care significantly affected by the following chronic conditions: Hypertension, Hyperlipidemia. Care significantly affected by the following Social Determinants of Health: Poor access to healthcare and/or lack of insurance, Poor access to transportation, Problems related to employment. Counseling: I had a detailed discussion with the patient and/or guardian regarding the historical points, exam findings, and any diagnostic results supporting the discharge/admit diagnosis, the presence of at least one elevated blood pressure reading (>120/80) during this emergency department visit, radiology results, the need for outpatient follow up, for definitive care, a family practitioner, to return to the emergency department if symptoms worsen or persist or if there are any questions or concerns that arise at home. Medication response: Toradol markedly relieved the patient's pain, Improved.. Response to treatment: the patient's symptoms have markedly improved after treatment. Special discussion: Based on the patient's history, exam and DX evaluation, there is no indication for emergent intervention or inpatient [place]. It is understood by the patient/guardian that if the SXs persist or worsen they need to return immediately for re-evaluation. I discussed with the patient/guardian in detail that at this point there is no indication for admission to the hospital. It is understood, however, that if the symptoms persist or worsen the patient needs to return immediately for re-evaluation. Based on the history and exam findings, there is no indication for further emergent testing or inpatient evaluation. I discussed with the patient/guardian the need to see the primary care provider for further evaluation of the symptoms. ED course: No fracture on CT or x-ray. All question answered. Strict ER precautions given. Will have patient follow primary care doctor. Patient reports her pain is much better.. 12/04 09:08 Order name: CT Head C Spine; Complete Time: 10:16 dr5 12/04 09:08 Order name: CT Facial Bones W/O Con; Complete Time: 10:22 dr5 12/04 09:08 Order name: Chest Single View XRAY dr5 12/04 09:08 Order name: Hip Left 2 View XRAY dr5 Administered Medications: 09:22 Drug: Acetaminophen PO 1000 mg PO once Route: PO; ss 09:23 Drug: Ketorolac IM 30 mg IM once Route: IM; Site: right gluteus; ss Disposition Summary: 12/04/24 10:40 Discharge Ordered Notes: Location: Home dr5 Condition: Stable dr5 Diagnosis - Fall on same level, unspecified dr5 - Headache dr5 Followup: dr5 - With: Emergency Department - When: As needed - Reason: Worsening of condition Followup: dr5 - With: Private Physician - When: 1 - 2 days - Reason: Recheck today's complaints, Continuance of care, Re-evaluation by your physician Discharge Instructions: - Discharge Summary Sheet dr5 - Fall Prevention in the Home, Adult dr5 Forms: - Medication Reconciliation Form dr5 - Patient Portal Instructions dr5 - Leadership Thank You Letter dr5 Prescriptions: - Ibuprofen 800 mg Oral Tablet - take 1 tablet ORAL route every 12 hours As needed take with food; 20 tablet; dr5 Refills: 0, Product Selection Permitted Addendum: 12/05/2024 13:32 Co-signature as Attending Physician, Marco Whittaker MD I agree with the assessment and c biggs plan of care. Signatures: Dispatcher [employer] Marco Young MD MD cha Blanchard, Shelby, RN RN ss Tr Meneses, GAS PUMPING STATION SUPERVISOR-C GAS PUMPING STATION SUPERVISOR-Cdr5
--- NOTE | 2024-12-04 11:06 | RAD REPORT ---
EXAMINATION: Hip Left 2 View CLINICAL INDICATION: Female, 84 years old. [facility] MAIN Swelling;Pain Bed: TECHNIQUE: 2 view radiograph of the left hip were obtained. COMPARISON: 11/06/2017. FINDINGS: No evidence of fracture or dislocation. Normal alignment. Mild left hip joint degenerative changes again seen. No Other focal bone lesion. Soft tissues are unremarkable. IMPRESSION: No acute osseous abnormalities. Mild hip joint degenerative changes, stable.
--- NOTE | 2024-12-04 11:08 | RAD REPORT ---
EXAMINATION: ONE VIEW CHEST XR CLINICAL INDICATION: Female, 84 years old.,TRAUMA TECHNIQUE: Frontal chest projection is submitted. Examination is limited by patient positioning and t echnique. COMPARISON: 10/08/2023 FINDINGS: The lungs are well inflated and clear. No pneumothorax or sizable effusion. The heart is normal in s ize. Mediastinal contours are unremarkable. IMPRESSION: No acute intrathoracic abnormalities.
[2024-12-04 17:50] VITALS: BP 154/79; TEMP 98.2; O2SAT 99
== END 2024-12-04 10:48 | disposition home or self-care (01) ==
LOC: ER 08:46
DX: R51.9 Headache, unspecified (principal); M25.552 Pain in left hip; W18.30XA Fall on same level, unspecified, initial encounter
CPT/HCPCS: 70450; 70486; 71045; 72125; 76377; 96372; 99284